=== PATIENT | male | born 1955 | race Caucasian/White ===

== ENCOUNTER 2023-09-17 06:50 | Inpatient (IN) | payer OTHER ==
[2023-09-17] MEDS ORDERED: SODIUM CHLORIDE 0.9% 1,000 ML IV ONE (07:01)
[2023-09-17] MEDS ORDERED: ACETAMINOPHEN IV (For NPO) 1,000 MG in EMPTY BAG 1 BAG IVPB STA (07:03)
[2023-09-17 07:19] LABS: Basophils % (A) 0 %; Eosinophils % (A) 1 %; HCT 42.5 % (39.0-53.0); HGB 14.2 gm/dL (13.0-17.5); Lymphocytes % (A) 15 %; MCH 35.3 pg (25.0-35.0); MCHC 33.4 g/dL (31.0-37.0); MCV 105.8 fL (80.0-100.0); Macrocytosis Moderate; Mean Platelet Volume 8.1; Monocytes # (A) 0.4 k/uL (0-1.0); Monocytes % (A) 6 %; Neutrophils # (A) 5.4 k/uL (1.3-7.7); Neutrophils % (A) 77 %; Platelet Count 152 k/uL (150-450); RBC 4.02 m/uL (4.30-5.90); RDW 13.8 % (11.5-15.5)
[2023-09-17] MEDS ORDERED: DIPH,PERTUS(ACELL)TETVAC-LF 0.5 ML VIAL IM ONE (07:22)
[2023-09-17 07:31] LABS: ALT 47 U/L (4-49); AST 69 U/L (17-59); African American GFR (CKD) >90 (>60 ml/min/1.73 sqM); Albumin 4.5 g/dL (3.5-5.0); Alcohol <10 mg/dL; Alkaline Phosphatase 59 U/L (38-126); Anion Gap 16 mmol/L; Blood Urea Nitrogen 9 mg/dL (9-20); Calcium 9.3 mg/dL (8.4-10.2); Carbon Dioxide 19 mmol/L (22-30); Chloride 99 mmol/L (98-107); Glucose 145 mg/dL (74-99); Non-African American GFR(CKD) 83 (>60 ml/min/1.73 sqM); Potassium 3.3 mmol/L (3.5-5.1); Sodium 134 mmol/L (137-145); Total Bilirubin 1.9 mg/dL (0.2-1.3); Total Protein 7.2 g/dL (6.3-8.2)
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
--- NOTE | 2023-09-17 07:45 | CT ---
EXAMINATION TYPE: CT brain kayleigh harris DATE OF EXAM: 09/17/2023 COMPARISON: None HISTORY: Pain Unenhanced CT of the brain was performed. The ventricles, basal cisterns and sulci overlying the cerebral convexities demonstrate mild enlargem ent. There is no evidence for intracranial hemorrhage or sulcal effacement. There is decreased attenuatio n about the periventricular white matter and deep white matter of both cerebral hemispheres, compatib le with chronic small vessel ischemia. No mass effects are seen. If symptoms persist consider MRI. Osseous calvarium is intact. Right frontal scalp hematoma noted. IMPRESSION: 1. Age related atrophic and chronic small vessel ischemic change without acute intracranial process seen at this time. CT Cervical Spine: Unenhanced CT of the cervical spine was performed with bone and soft tissue window settings submitted . Coronal and sagittal reconstruction is obtained. There is normal alignment and prevertebral soft tissues. No evidence for acute cervical fracture . Scattered degenerative disc disease and spondylosis. Biapical scarring. IMPRESSION: 1. No evidence for acute fracture or subluxation of the cervical spine.
--- NOTE | 2023-09-17 07:46 | XR ---
EXAMINATION TYPE: XR chest 1V DATE OF EXAM: 09/17/2023 HISTORY: Shortness of breath. COMPARISON: None. TECHNIQUE: Single view of the chest is submitted. FINDINGS: Demonstrated are scattered senescent parenchymal change. There is no evidence for focal infiltrate. The heart is stable. Hilar and mediastinal structures are within normal limits. Degenerative changes are seen of the dorsal spine. IMPRESSION: 1. Chronic changes without evidence for acute pulmonary disease.
[2023-09-17] MEDS ORDERED: POTASSIUM CHLORIDE ER 20 MEQ TAB.ER PO STA (08:15)
[2023-09-17] MEDS ORDERED: MAGNESIUM OXIDE 400 MG TAB PO STA (08:16)
[2023-09-17] MEDS ORDERED: MAGNESIUM SULFATE-D5W PMX 1 GM in DEXTROSE/WATER 1 100ML.BAG IVPB ONE (08:16)
[2023-09-17 10:06] LABS: Appearance,Urine Clear (Clear); Bilirubin,Urine Negative (Negative); Blood,Urine Negative (Negative); Color,Urine Light Yellow; Glucose,Urine (UA) Trace (Negative); Ketones,Urine 1+ (Negative); Leukocyte Esterase,Urine Negative (Negative); Nitrite,Urine Negative (Negative); PH, Urine 7.5 (5.0-8.0); Protein,Urine Trace (Negative)
[2023-09-17 10:49] LABS: Amphetamine Screen,Urine Not Detected (NotDetected); Barbiturate Screen,Urine Not Detected (NotDetected); Benzodiazepines Screen,Urine Not Detected (NotDetected); Cocaine Screen,Urine Not Detected (NotDetected); Methadone Screen, Urine Not Detected (NotDetected); Opiate Screen,Urine Not Detected (NotDetected); Oxycodone Screen, Urine Not Detected (NotDetected); Phencyclidine Screen,Urine Not Detected (NotDetected); Tricyclic Antidepressant,Urine Not Detected (NotDetected); Urn Cannabinoid Scrn Not Detected (NotDetected)
[2023-09-17] MEDS ORDERED: LORazepam 2 MG/ML INJ IV PRN ×2 (11:36)
[2023-09-17] MEDS ORDERED: LORazepam 2 MG/ML INJ IV STA (11:37)
[2023-09-17] MEDS ORDERED: NALOXONE 0.4 MG/ML 1 ML VIAL IV PRN (11:38)
[2023-09-17] MEDS ORDERED: ONDANSETRON 4 MG/2 ML VIAL IVP PRN (11:38)
[2023-09-17] MEDS: SODIUM CHLORIDE 0.9% 1,000 ML IV SCH (12:00)
[2023-09-17] MEDS: MAGNESIUM SULFATE-D5W PMX 1 GM in DEXTROSE/WATER 1 100ML.BAG IVPB SCH ×2 (12:01→13:37)
[2023-09-17] MEDS ORDERED: cloNIDine HCL 0.1 MG TAB PO PRN (12:44)
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
[2023-09-17] MEDS: HEPARIN SODIUM,PORCINE 5,000 UNIT/ML 1 ML VIAL SQ SCH ×2 (13:37→20:14)
[2023-09-17] MEDS: PANTOPRAZOLE 40 MG/10 ML VIAL IVP SCH ×2 (13:37→20:14)
[2023-09-17] MEDS: cloNIDine HCL 0.1 MG TAB PO SCH ×3 (13:41→20:16)
[2023-09-17] MEDS: LORazepam 2 MG/ML INJ IV PRN ×2 (13:42→15:00)
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
[2023-09-18] MEDS: SODIUM CHLORIDE 0.9% 1,000 ML IV SCH ×2 (06:20→23:36)
[2023-09-18] MEDS: cloNIDine HCL 0.1 MG TAB PO SCH ×3 (08:34→23:46)
[2023-09-18] MEDS: THIAMINE 100 MG TAB PO SCH (08:34)
[2023-09-18] MEDS: HEPARIN SODIUM,PORCINE 5,000 UNIT/ML 1 ML VIAL SQ SCH ×2 (08:34→23:44)
[2023-09-18] MEDS: PANTOPRAZOLE 40 MG/10 ML VIAL IVP SCH ×2 (08:34→23:45)
[2023-09-18 10:52] LABS: HCT 35.8 % (39.6-50.0); HGB 11.8 g/dL (13.0-17.0); MCV 106.2 FL (80.0-97.0); Mean Platelet Volume 10.3 FL (9.5-12.2); NRBC Per 100 WBC 0 X 10*3/uL (0.00-0.01); Platelet Count 106 X 10*3/uL (140-440); RBC 3.37 X 10*6/uL (4.40-5.60); RDW 14.4 % (11.5-14.5); WBC 4.93 X 10*3/uL (4.50-10.00)
[2023-09-18 10:59] LABS: BUN/Creat Ratio 7.88 Ratio (12.00-20.00); Blood Urea Nitrogen 6.3 mg/dL (9.0-27.0); Calcium 8.7 mg/dL (8.7-10.3); Carbon Dioxide 21.2 mmol/L (21.6-31.8); Chloride 107 mmol/L (96-109); Glucose 94 mg/dL (70-110); Magnesium 2.1 mg/dL (1.5-2.4); Potassium 4.8 mmol/L (3.5-5.5); Sodium 140 mmol/L (135-145)
[2023-09-18 12:03] LABS: Basophils # (M) 0 X 10*3/uL (0.00-0.10); Eosinophils # (M) 0 X 10*3/uL (0.04-0.35); Lymphocytes # (M) 1.82 X 10*3/uL (0.90-5.00); Macrocytosis (M) 2+; Monocytes # (M) 0.25 X 10*3/uL (0.20-1.00); Myelocytes % 2 % (0-0); Neutrophils # (M) 2.76 X 10*3/uL (1.80-7.70); Neutrophils % (M) 56 %; Nucleated Red Blood Cells 2 /100 WBCS
[2023-09-18] MEDS ORDERED: HYDROcodone/APAP 5-325MG 1 EACH TAB PO PRN (12:23)
--- NOTE | 2023-09-18 12:51 | CT ---
Exam: CT Angiography of the Chest. Date: 09/18/2023. Comparison: None History: Elevated d-dimer. Technique: CT examination of the chest was performed following the intravenous administration of 100 mL of Isovue-370. CT dose lowering techniques were used, to include: automated exposure control, adju stment for patient size, and/or use of iterative reconstruction. FINDINGS: Mediastinum and Stefanie: There is no axillary, mediastinal or hilar lymphadenopathy. Pleural and Pericardial spaces: There are no pleural or pericardial effusions. Upper Abdomen: The visualized upper abdomen is unremarkable. Cardiovascular: The thoracic aorta is normal in size without evidence of aneurysm or dissection. Pulmonary Artery: There are no filling defects in the pulmonary arteries. Lung Parenchyma and Airways: The lungs are clear. Bones: There is a significant compression deformity of the T12 vertebral body which has a chronic gauri earance. There is greater than 75% vertebral body height loss anteriorly. There are no acute osseous abnormalities IMPRESSION: 1. No evidence of pulmonary embolism. 2. No evidence of thoracic aortic aneurysm or dissection. 3. No evidence of pneumonia, pleural or pericardial effusions.
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
[2023-09-18] MEDS: MULTIVITAMINS, THERA 1 EACH TAB PO SCH (13:19)
[2023-09-18] MEDS: FOLIC ACID 1 MG TAB PO SCH (13:20)
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
[2023-09-18 20:18] VITALS: RESP 18
[2023-09-19] MEDS: SODIUM CHLORIDE 0.9% 1,000 ML IV SCH (05:14)
[2023-09-19] MEDS: HEPARIN SODIUM,PORCINE 5,000 UNIT/ML 1 ML VIAL SQ SCH (07:58)
[2023-09-19] MEDS: FOLIC ACID 1 MG TAB PO SCH (07:58)
[2023-09-19] MEDS: cloNIDine HCL 0.1 MG TAB PO SCH (07:58)
[2023-09-19] MEDS: MULTIVITAMINS, THERA 1 EACH TAB PO SCH (07:58)
[2023-09-19] MEDS: THIAMINE 100 MG TAB PO SCH (07:58)
[2023-09-19] MEDS: PANTOPRAZOLE 40 MG/10 ML VIAL IVP SCH (07:58)
[2023-09-19 09:46] VITALS: BP 135/91; PULSE 67; TEMP 98.5
[2023-09-19 11:50] LABS: ALT 42 U/L (4-49); AST 57 U/L (17-59); African American GFR (CKD) >90 (>60 ml/min/1.73 sqM); Albumin/Globulin Ratio 1.5; Alkaline Phosphatase 74 U/L (38-126); Anion Gap 11 mmol/L; Blood Urea Nitrogen 7 mg/dL (9-20); Calcium 8.8 mg/dL (8.4-10.2); Carbon Dioxide 21 mmol/L (22-30); Chloride 105 mmol/L (98-107); Globulin 2.7 g/dL; Glucose 80 mg/dL (74-99); Non-African American GFR(CKD) >90 (>60 ml/min/1.73 sqM); Sodium 137 mmol/L (137-145); Total Protein 6.7 g/dL (6.3-8.2)
[2023-09-19 11:52] LABS: Potassium 3.9 mmol/L (3.5-5.1)
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
[2023-09-19 13:02] LABS: Basophils # (A) 0.05 X 10*3/uL (0.00-0.10); Basophils % (A) 0.9 %; Eosinophils # (A) 0.13 X 10*3/uL (0.04-0.35); Eosinophils % (A) 2.3 %; HCT 38.6 % (39.6-50.0); HGB 12.8 g/dL (13.0-17.0); Lymphocytes # (A) 1.81 X 10*3/uL (0.90-5.00); Lymphocytes % (A) 32.3 %; MCH 34.9 pg (27.0-32.0); MCHC 33.2 g/dL (32.0-37.0); MCV 105.2 FL (80.0-97.0); Mean Platelet Volume 10.9 FL (9.5-12.2); Monocytes # (A) 0.64 X 10*3/uL (0.20-1.00); Monocytes % (A) 11.4 %; NRBC Per 100 WBC 0 X 10*3/uL (0.00-0.01); Neutrophils # (A) 2.95 X 10*3/uL (1.80-7.70); Neutrophils % (A) 52.7 %; Platelet Count 125 X 10*3/uL (140-440); RBC 3.67 X 10*6/uL (4.40-5.60); RDW 14.1 % (11.5-14.5)
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
== END 2023-09-19 13:52 | disposition home or self-care (01) | DRG 897 ==
LOC: EC 06:50 → 4SSUR 12:38
PROVIDERS: ADMIT Hospitalist; ATTEND Hospitalist
DX: F10.131 Alcohol abuse with withdrawal delirium (principal); E87.1 Hypo-osmolality and hyponatremia; Y90.0 Blood alcohol level of less than 20 mg/100 ml; E83.42 Hypomagnesemia; E87.6 Hypokalemia; I10 Essential (primary) hypertension; Z11.52 Encounter for screening for COVID-19; R79.1 Abnormal coagulation profile; S80.212A Abrasion, left knee, initial encounter; V43.52XA Car driver injured in collision with other type car in traffic accident, initial encounter; Y92.414 Local residential or business street as the place of occurrence of the external cause; S00.03XA Contusion of scalp, initial encounter; S70.02XA Contusion of left hip, initial encounter; J06.9 Acute upper respiratory infection, unspecified; R00.0 Tachycardia, unspecified
CPT/HCPCS: 36415; 70450; 71045; 71275; 72125; 73502; 80048; 80053; 80306; 80320; 81003; 83735; 85025; 85379; 86140; 87636; 90471; 90715; 93005; 93970; 96365; 96366; 96368; 96375; 96376; 99291